=== PATIENT | female | born 1935 | race Caucasian/White ===

== ENCOUNTER → 2017-02-08 | Outpatient (CLI) | payer MEDICARE, OTHER ==
[~2017-02-08] MED LIST: 24 HOUR ALLER15.8 ML; ADALATCC PO; ADVAIR 250-501 EACH IH; ADVAIR 2501 DISK W/1 INH; ALBUTEROL17 GM INH; AMBIEN10 MG PO; APRESOLINE; ASPIRIN PO; ASPIRIN81 M2 PO; ASPIRIN81 MG PO; CLOPIDOGREL75 MG PO; DIAZEPAM PO; FLONASE16 GM; FUROSEMIDE40 MG PO; HYDRALAZINE HC100 MG PO; HYDRALAZINE HCL50 MG PO; HYDROCODON-ACE1 EAC1 PO; IMDUR-ER60 M1 PO; IMDUR-ER60 MG PO; LASIX PO; LEVOTHYROXINE25 MCG PO; LIPITOR PO; LORTAB 7.5-3251 EACH PO; MULTI VITAMIN1 EACH PO; MULTI-DAY1 TAB PO; NIFEDICAL PO; NITROGLYGERIN0.4 MG SL; NITROSTAT0.4 MG SL; PANTOPRAZOLE SO40 MG PO; PLAVIX PO; PRILOSEC20 MG PO; PROAIR HFA8.5 GM IN; PROAIR HFA8.5 GM INH; PROCARDIA10 MG PO; SALINE NOSE SPR45 M1; SIMVASTATIN20 MG PO; SPIRIVA18 MCG INH; SYNTHROID25 MCG PO; TOPROL XL 50 MG50 MG PO; TOPROL XL50 MG PO; VICODIN ES 7.51 EAC1 PO; VITAL-D RX TABL1 TAB PO; VITAMIN D12 PO; VITAMIN D2 PO; WALGREENS PHARMACY; ZOCOR20 MG PO; [UNRECOGNIZED DRUG - REMARK]
--- NOTE | ~2017-02-08 | XA91 ---
[facility] A Service of [facility] & [facility] RADIOLOGY TEXT RESULTS PATIENT: KO MILLAN LOCATION: CIVR : 34 UNIT #: [id number] AGE: [address]: Flaquito Strauss MD SEX: F ORDER DR: [id number] [facility] [address] [place], [place] [address] [id number] O MR#: [id number] Acc #: [id number] NAME: KO MILLAN. : 1935 SEX: F STUDY DATE/TIME: 02/08/2017 8:29 UNIT: CIVR ROOM: STUDY DESCRIPTION: XA CVC Tunneled W Port Attending Physician: Flaquito Strauss M.D. Ordering Physician: Flaquito Strauss M.D. Primary Care Physician: Abilio Harris M.D. MEDICAL IMAGING REPORT This report is preliminary unless electronic signature is present EXAM Ultrasound fluoroscopically-guided chest port placement, 02/08/2017 INDICATION 82-year-old female with history of lymphoma. Access for chemotherapy needed. The fluoro time was 0.4 minutes. One spot image was taken. Medications IV Versed and Fentanyl utilized for conscious sedation. Conscious sedation time monitored by appropriately credentialed radiology nursing staff. 1 g of Cefazolin was administered for antibiotic prophylaxis. The risks, benefits and alternatives of the procedure were discussed with the patient and informed consent was obtained. In the procedure room a time-out was performed confirming correct patient and procedure. All elements of maximum sterile-barrier technique were utilized according to guidelines appropriate for the procedure. TECHNIQUE/FINDINGS Ultrasound of the right internal jugular vein was performed. It was patent and compressible and image was saved. Next, using full standard sterile barrier technique including sterile caps, gowns, gloves, masks, drapes, 2% Chlorhexidine for cutaneous antisepsis and hand hygiene, real-time sterile ultrasound guidance was utilized with sterile gel and a sterile probe cover and the right internal jugular vein was punctured using a 21-gauge micropuncture needle. Through this access and under fluoroscopic guidance a peel-away sheath was advanced into the SVC. Next, a small incision was made below the right clavicle. A subcutaneous pocket was created. The port was placed in the pocket and the catheter tubing was tunneled underneath the skin through the jugular dermatotomy site. Tubing was measured and cut to length and advanced through the sheath. The sheath was peeled away. A spot image was taken confirming STS. [facility] A Service of [facility] RADIOLOGY TEXT RESULTS PATIENT: KO MILLAN LOCATION: CIVR : 34 UNIT #: [id number] AGE: [address]: Flaquito Strauss MD SEX: F ORDER DR: satisfactory position with the tip of the catheter located at the cavoatrial junction. The catheter was flushed with heparinized saline. The port pocket was closed using 3-0 Vicryl and Dermabond. The jugular dermatotomy site was closed using Dermabond. The patient tolerated the procedure well without immediate complication. IMPRESSION Technically successful ultrasound and fluoroscopically guided placement of a right IJ chest port. Dictated by... Jonel Reed M.D. THIS IS AN ELECTRONICALLY VERIFIED REPORT Jonel Reed M.D. at 02/12/2017 8:37 AM MAULIK/stefania TD: 02/09/2017 02:04 JOB #: [id number] MEDICAL IMAGING REPORT COPY
[2017-02-08 06:46] LABS: HEMATOCRIT 41.5 % (35.0-45.0); HEMOGLOBIN 13.7 gm/dL (12.0-16.0); MEAN CELL VOLUME 96.6 FL (83-96); MEAN CORPUSCULAR HGB CONC 33.1 g/dL (30-36); MEAN PLATELET VOLUME 8.4 FL (6.5-11.5); RED BLOOD COUNT 4.29 X10e (3.90-5.30); RED CELL DISTRIBUTION WIDTH 13.4 % (11.0-15.5); WHITE BLOOD COUNT 5.8 X10e3 (4.0-10.5)
[2017-02-08 07:01] LABS: PARTIAL THROMBOPLASTIN TIME 28.7 SECONDS (23.5-31.3); PROTHROMBIN TIME (PATIENT) 10.7 SECONDS (9.6-11.5)
== END | disposition home or self-care (01) ==
LOC: CIVR 06:21
PROVIDERS: Internal Medicine Hematology & Oncology
PROC: 05HM33Z Insertion of Infusion Device into Right Internal Jugular Vein, Percutaneous Approach (ICD-10-PCS; principal; 2017-02-08)
DX: Z45.2 Encounter for adjustment and management of vascular access device (principal); C82.23 Follicular lymphoma grade III, unspecified, intra-abdominal lymph nodes; R59.1 Generalized enlarged lymph nodes; J44.9 Chronic obstructive pulmonary disease, unspecified; N18.4 Chronic kidney disease, stage 4 (severe); Z88.7 Allergy status to serum and vaccine; I25.2 Old myocardial infarction; Z91.030 Bee allergy status; Z86.79 Personal history of other diseases of the circulatory system; Z90.49 Acquired absence of other specified parts of digestive tract; Z95.1 Presence of aortocoronary bypass graft; Z90.710 Acquired absence of both cervix and uterus
CPT/HCPCS: 36415; 76937; 77001; 85027; 85610; 85730; C1788; J0690; J1642; J2250; J3010

== ENCOUNTER 2017-02-10 16:26 | Emergency (ER) | payer MEDICARE, OTHER ==
--- NOTE | ~2017-02-10 | NM69 ---
[facility] A Service of [facility] & [facility] RADIOLOGY TEXT RESULTS PATIENT: KO MILLAN LOCATION: [facility] : 34 UNIT #: [id number] AGE: [address]: Anthony Flores MD SEX: F ORDER DR: [id number] [facility] [address] [place], [place] [address] [id number] E MR#: [id number] Acc #: [id number] NAME: KO MILLAN : 1935 SEX: F STUDY DATE/TIME: 02/10/2017 20:11 UNIT: [facility] ROOM: STUDY DESCRIPTION: NM Pulm Vent and Perf Attending Physician: Anthony Flores M.D. Referring Physician: Abilio Harris M.D. Ordering Physician: Anthony Flores M.D. Primary Care Physician: Abilio Harris M.D. MEDICAL IMAGING REPORT This report is preliminary unless electronic signature is present EXAM Pulmonary ventilation-perfusion study, nuclear medicine. DATE OF EXAM 02/10/2017 HISTORY Short of air for years. Abdominal and back pain started this morning. Patient has had a history of cancer, but the patient is not sure what kind. She did have a melanoma under her eye. History of sleep apnea, COPD, hypertension, previous smoker. COMMENT Ventilation imaging was obtained during the inhalation of 32.1 mCi technetium-99m labeled DTPA aerosolized. Perfusion imaging was obtained following the intravenous administration of 5.89 mCi of technetium-99m labeled MAA. Imaging obtained in multiple projections. See chest x-ray for comparison from the same day. There is mild heterogeneity of ventilation imaging in general consistent with chronic obstructive lung disease history. There is, however, no area which is better ventilated than perfused. A few small matched defects are seen. IMPRESSION 1. Low probability study for the presence of pulmonary embolism. 2. are consistent with known diagnosis of obstructive lung disease. STAT * RESULT Dictated by... [facility] A Service of [facility] & [facility] RADIOLOGY TEXT RESULTS PATIENT: KO MILLAN [id number] UNIT #: [id number] AGE: [address]: Anthony Flores MD SEX: F ORDER DR: Latanya Arriaga M.D. THIS IS AN ELECTRONICALLY VERIFIED REPORT Latanya Arriaga M.D. at 02/10/2017 10:22 PM MIYA/isabel TD: 02/10/2017 21:18 JOB #: [id number] MEDICAL IMAGING REPORT COPY
--- NOTE | ~2017-02-10 | CR72 ---
[facility] A Service of [facility] & [facility] RADIOLOGY TEXT RESULTS PATIENT: KO MILLAN LOCATION: [facility] : 34 UNIT #: [id number] AGE: [address]: Anthony Flores MD SEX: F ORDER DR: [id number] [facility] [address] [place], [place] [address] [id number] E MR#: [id number] Acc #: [id number] NAME: KO MILLAN. : 1935 SEX: F STUDY DATE/TIME: 02/10/2017 15:23 UNIT: [facility] ROOM: STUDY DESCRIPTION: CR Chest Single View Portable Attending Physician: Anthony Flores M.D. Referring Physician: Abilio Harris M.D. Ordering Physician: Anthony Flores M.D. Primary Care Physician: Abilio Harris M.D. MEDICAL IMAGING REPORT This report is preliminary unless electronic signature is present EXAM Chest x-ray single-view portable HISTORY Chest pain radiating to back, short of air starting this morning, skin and throat cancer history. Chest congestion. COMMENT Single frontal portable view of the chest timed 15:23 02/10/2017 compared to a study from 07/10/2015. Interval placement of a right side tunneled catheter terminating [id number] SVC. Postoperative cardiac silhouette is enlarged moderately increased in size from previous with increasing ectasia of the thoracic aorta. Vascular calcifications are seen. There is a right hemidiaphragm eventration again identified and probably a new right pleural effusion. Also development of mild vascular congestion and interstitial edema. Patchy right perihilar airspace disease. No pneumothorax. IMPRESSION Findings are most consistent with the interval development of mild congestive failure with vascular congestion, interstitial edema and probably a small right pleural effusion. Cardiomediastinal silhouette is increased in size when comparison is made to 07/10/2015 and there is now increasing ectasia of the thoracic aorta. There is a new right-sided tunneled catheter terminating [id number] SVC level. There is no pneumothorax. Persistent eventration right hemidiaphragm is unchanged. Dictated by... Latanya A. Crecelius, M.D. [facility] A Service of [facility] & [facility] RADIOLOGY TEXT RESULTS PATIENT: KO MILLAN [id number] UNIT #: [id number] AGE: [address]: Anthony Flores MD SEX: F ORDER DR: THIS IS AN ELECTRONICALLY VERIFIED REPORT Latanya Arriaga M.D. at 02/12/2017 7:45 AM MIYA/delta TD: 02/11/2017 14:52 JOB #: [id number] MEDICAL IMAGING REPORT COPY
--- NOTE | ~2017-02-10 | EKG ---
PATIENT: KO MILLAN UNIT #: [id number] Ventricular Rate: 68 BPM Atrial Rate: 68 BPM P-R Interval: 202 ms QRS Duration: 94 ms Q-T Interval: 438 ms QTC Calculation(Bezet): 465 ms P [place]: -19 degrees Calculated R [place]: 1 degrees Calculated T [place]: -24 degrees Diagnosis Line: Normal sinus rhythm Diagnosis Line: Poor R wave progression questionable lead position Diagnosis Line: or body habitus T wave abnormality, consider Diagnosis Line: lateral ischemia Diagnosis Line: Abnormal ECG Diagnosis Line: When compared with ECG of 24-APR-2016 20:25, Diagnosis Line: Premature atrial complexes are no longer Present Diagnosis Line: Septal infarct is now Present Diagnosis Line: Confirmed by NINA FOX MD ([id number]) on 02/12/2017 Diagnosis Line: 7:29:38 AM INTERPRETING MD: RUDDY AUGUSTIN
[2017-02-10 16:11] LABS: POC - CKMB <1.0 ng/mL (0.0-7.9); POC - TROPONIN <0.05 ng/mL (<=0.05)
[2017-02-10 16:18] LABS: BASOPHIL# 0.1 X10e3 (0-0.3); BASOPHIL% 1.4 % (0-2.5); EOSINOPHIL# 0.2 X10e3 (0-0.7); HEMATOCRIT 40.4 % (35.0-45.0); HEMOGLOBIN 13.1 gm/dL (12.0-16.0); LYMPHOCYTE% 33.4 % (17.0-45.0); MEAN CELL VOLUME 97.7 FL (83-96); MEAN CORPUSCULAR HEMOGLOBIN 31.6 PG (28-34); MEAN CORPUSCULAR HGB CONC 32.4 g/dL (30-36); MEAN PLATELET VOLUME 9.2 FL (6.5-11.5); MONOCYTE# 0.5 X10e3 (0-1.0); MONOCYTE% 8.4 % (3.0-12.0); NEUTROPHIL# 3.2 X10e3 (1.5-7.1); NEUTROPHIL% 53.8 % (40-75); PLATELET COUNT 185 X10e3 (140-420); RED BLOOD COUNT 4.13 X10e (3.90-5.30); RED CELL DISTRIBUTION WIDTH 13.2 % (11.0-15.5)
[2017-02-10 16:22] LABS: DIFF IND NO
[2017-02-10 16:57] LABS: ALBUMIN SERUM 3.3 g/dL (3.5-5.0); BILIRUBIN, DIRECT 0.1 mg/dL (0.0-0.2); BILIRUBIN,INDIRECT 0.5 mg/dL (0.0-0.9); BILIRUBIN,TOTAL 0.6 mg/dL (0.2-2.0); BUN/CREATININE RATIO 21.11; CALCIUM SERUM 8.7 mg/dL (8.4-10.2); CREATININE SERUM 1.8 mg/dL (0.6-1.4); GLOM FILT RATE Estimated 28.6 mL/min (>60); POTASSIUM 4.4 mmol/L (3.5-5.1)
[2017-02-10 18:03] LABS: POC - CKMB <1.0 ng/mL (0.0-7.9); POC - TROPONIN <0.05 ng/mL (<=0.05)
== END 2017-02-10 22:00 | disposition home or self-care (01) ==
LOC: CED 16:26
PROVIDERS: Emergency Medicine
DX: I11.0 Hypertensive heart disease with heart failure (principal); I50.9 Heart failure, unspecified; M54.5 Low back pain; Z90.49 Acquired absence of other specified parts of digestive tract; Z90.710 Acquired absence of both cervix and uterus; Z95.1 Presence of aortocoronary bypass graft; Z98.890 Other specified postprocedural states
CPT/HCPCS: 36415; 71010; 78582; 80048; 80076; 82553; 84484; 85025; 85379; 93005; 96374; 99284; A9540; A9567; J1940

== ENCOUNTER → 2017-04-18 | Outpatient (CLI) | payer MEDICARE, OTHER ==
--- NOTE | ~2017-04-18 | US37 ---
[facility] A Service of [facility] & [facility] RADIOLOGY TEXT RESULTS PATIENT: KO MILLAN LOCATION: [facility] : 34 UNIT #: [id number] AGE: [address]: Alexsander Batista MD SEX: F ORDER DR: [id number] [facility] [address] [place], [place] [address] [id number] O MR#: [id number] Acc #: [id number] NAME: KO MILLAN : 1935 SEX: F STUDY DATE/TIME: 04/18/2017 12:47 UNIT: CNIV ROOM: STUDY DESCRIPTION: US Carotid W/Doppler Bilateral Attending Physician: Alexsander Batista M.D. Referring Physician: Alexsander Batista M.D. Ordering Physician: Alexsander Batista M.D. Primary Care Physician: Abilio Harris M.D. MEDICAL IMAGING REPORT This report is preliminary unless electronic signature is present DATE OF EXAM 04/18/2017 EXAM Bilateral carotid Doppler. HISTORY Carotid stenosis. History of left endarterectomy. FINDINGS The right common carotid, internal carotid, and external carotid arteries are patent with mild plaque identified at the carotid bulb and internal carotid artery. Velocity of the common carotid artery is 86 cm/sec. Peak systolic velocity of the right proximal internal carotid artery is 139 cm/sec with an end-diastolic velocity of 40 cm/sec, for an ICA/CCA ratio of 1.6. External carotid artery had a velocity of 81 cm/sec. The vertebral artery is visualized with antegrade flow. The left common carotid, internal carotid, and external carotid arteries are patent. There is minimal plaque noted at the mid common carotid artery but no plaque noted in the internal carotid artery. Velocity of the common carotid artery is 86 cm/sec. Peak systolic velocity left proximal internal carotid artery is 58 cm/sec with an end-diastolic velocity of 20 cm/sec, for an ICA/CCA ratio of 0.67. External carotid artery had a velocity of 51 cm/sec. The vertebral artery is visualized with antegrade flow. IMPRESSION 1. 50% to 69% stenosis of the right internal carotid artery and normal appearance of the left internal carotid artery. 2. No stenosis of the external carotid arteries. 3. Antegrade flow of the vertebral arteries. [facility] A Service of [facility] RADIOLOGY TEXT RESULTS PATIENT: KO MILLAN LOCATION: [facility] : 34 UNIT #: [id number] AGE: [address]: Alexsander Batista MD SEX: F ORDER DR: Dictated by... Yung Luna M.D. THIS IS AN ELECTRONICALLY VERIFIED REPORT Yung Luna M.D. at 04/25/2017 11:00 AM ROSAS/rachel TD: 04/19/2017 16:56 JOB #: [id number] MEDICAL IMAGING REPORT Page 1 of 1 COPY
--- NOTE | ~2017-04-18 | CT4 ---
[facility] A Service of [facility] & [facility] RADIOLOGY TEXT RESULTS PATIENT: KO MILLAN LOCATION: [facility] : 34 UNIT #: [id number] AGE: [address]: Alexsander Batista MD SEX: F ORDER DR: [id number] [facility] [address] [place], [place] [address] [id number] O MR#: [id number] Acc #: [id number] NAME: KO MILLAN : 1935 SEX: F STUDY DATE/TIME: 04/18/2017 13:27 UNIT: CNIV ROOM: STUDY DESCRIPTION: CT Abd and Pelv Wo Cont Attending Physician: Alexsander Batista M.D. Referring Physician: Alexsander Batista M.D. Ordering Physician: Alexsander Batista M.D. Primary Care Physician: Abilio Harris M.D. MEDICAL IMAGING REPORT This report is preliminary unless electronic signature is present EXAM CT abdomen and pelvis without contrast 04/18/2017 INDICATIONS Followup aortic aneurysm. TECHNIQUE CT of the abdomen and pelvis was performed without contrast. Coronal and sagittal reformatted images were obtained. This CT exam was performed with one or more of the following radiation dose reduction techniques: automatic exposure control, adjustment of mA and/or kV according to patient size, and iterative reconstruction. Comparison is made with PET CT from 03/29/[address] of the abdomen and pelvis from 12/15/2016. FINDINGS Evaluation of the lung bases is stable compared with recent PET CT. The liver is unremarkable. Cholecystectomy. The spleen is unremarkable. Stable nonobstructing stone in the lower pole of the left kidney. Stable atrophy of the left kidney with respect to the right. Stable tiny nonobstructing stone in the right kidney. The patient appears to have had a prior open infrarenal abdominal aortic aneurysm repair. There is aneurysmal dilatation of the aorta above the anastomosis measuring about 6.6 x 5.4 cm on image 36. Previously on the study from 12/15/2016 it is measured about 6.2 x 5.3 cm measured in a similar location. There is a stent within the right renal artery. The adrenal glands are unremarkable. The pancreas is unremarkable. PELVIS: Sigmoid diverticulosis. No evidence for diverticulitis. There is no free fluid. Bone windows are unremarkable. IMPRESSION 1. Interval increase in size of aortic aneurysm compared with the study [facility]. [facility] A Service of [facility] RADIOLOGY TEXT RESULTS PATIENT: KO MILLAN LOCATION: [facility] : 34 UNIT #: [id number] AGE: [address]: Alexsander Batista MD SEX: F ORDER DR: from November 2016. It measures about 6.6 x 5.4 cm in greatest dimension. Previously it was 6.2 x 5.3 cm. 2. Additional findings as described. Dictated by... Jonel Reed M.D. THIS IS AN ELECTRONICALLY VERIFIED REPORT Jonel Reed M.D. at 04/20/2017 9:07 AM Cathleen TD: 04/18/2017 18:37 JOB #: [id number] MEDICAL IMAGING REPORT Page 1 of 1 COPY
== END | disposition home or self-care (01) ==
LOC: CNIV 12:22
DX: I71.4 Abdominal aortic aneurysm, without rupture (principal); I65.23 Occlusion and stenosis of bilateral carotid arteries; I65.21 Occlusion and stenosis of right carotid artery; N20.0 Calculus of kidney; N26.1 Atrophy of kidney (terminal); K57.30 Diverticulosis of large intestine without perforation or abscess without bleeding; Z90.49 Acquired absence of other specified parts of digestive tract; Z95.828 Presence of other vascular implants and grafts
CPT/HCPCS: 74176; 93880